=== PATIENT | male | born 1980 | race Caucasian/White ===

== ENCOUNTER 2019-09-23 14:59 | Emergency (ER) | payer BC, SELFPAY ==
[2019-09-23 15:00] VITALS: BP 187/121; PULSE 80; RESP 20; TEMP 36.8; O2SAT 95; BMI 54.6
--- NOTE | 2019-09-23 15:10 | PC.NURSE ---
Notified MD of pt condition, notified rad of stroke protocol
--- NOTE | 2019-09-23 15:16 | PC.NURSE ---
Another stroke protocol called on different pt, myself and charge nurse decided the other pt meet priority of care for head CT, CT notified to take other pt, this pt is stable and awaiting CT
[2019-09-23 15:18] VITALS: BMI 54.6
--- NOTE | 2019-09-23 15:21 | CT_ITS ---
PROCEDURE: CT HEAD/BRAIN WO CON CLINICAL INDICATION: stroke head Left facial droop COMPARISON: No exams were available for comparison TECHNIQUE: Axial images obtained. All CT scans at the facility use one or more dose reduction, viz: automated exposure control, ma/kV adjustment per patient size (including targeted exams where dose is matched to indication, i.e. head), or iterative reconstruction technique. FINDINGS: No midline shift, mass effect, intracranial hemorrhage, hydrocephalus, or extra-axial fluid collection is evident. The calvarium has an unremarkable appearance. No mastoid effusion. No sinus air-fluid level. IMPRESSION: No acute intracranial finding Dictated by: Bryson Medrano MD 09/23/2019 15:50 Electronically signed by Bryson Medrano MD in [place] 09/23/2019 15:50
[2019-09-23 15:26] LABS: Basophils # 0.1 K/mm3 (0-0.2); Basophils % 0.6 % (0.1-2.0); Eosinophils # 0.2 K/mm3 (0.0-0.4); Eosinophils % 1.6 % (0.1-12.0); Hematocrit 45.2 % (42.0-52.0); Hemoglobin 14.7 g/dL (14.1-18.0); Lymphocytes # 2.9 K/mm3 (0.7-4.5); Lymphocytes % 26.1 % (10-50); Mean Corpuscular HGB Conc 32.5 g/dL (31.8-35.4); Mean Corpuscular Hemoglobin 26.8 pg (27.0-31.2); Mean Corpuscular Volume 82.5 fl (80-94); Mean Platelet Volume 9.4 fl (7.4-10.4); Monocytes # 0.5 K/mm3 (0.1-1.0); Monocytes % 4.3 % (1.7-9.3); Neutrophils # 7.4 K/mm3 (1.8-7.8); Neutrophils % 67.4 % (37.0-80.0); Platelet Count 271 K/mm3 (142-424); Red Blood Count 5.48 M/mm3 (4.60-6.20); Red Cell Distribution Width 13.8 % (11.5-17.5); White Blood Count 11.1 K/mm3 (4.8-10.8)
--- NOTE | 2019-09-23 15:30 | ECG_ITS ---
APPROVED REPORT Exam: Resting ECG HR:82 bpm ECG Measurements Heart Rate 82 AXES PA 148 P 16 QRSd 102 QRS -9 QT 372 T 27 QTc 434 <Conclusion> Normal sinus rhythm Normal ECG Electronically signed by : Biju Ruiz, 09/25/2019 05:56:36
[2019-09-23 15:33] LABS: Chloride 96 mmol/L (98-107); Sodium 134 mmol/L (136-145)
[2019-09-23 15:34] LABS: Potassium 4.3 mmoL/L (3.5-5.1)
[2019-09-23 15:36] LABS: Alanine Aminotransferase 43 U/L (12-78); Alkaline Phosphatase 100 U/L (38-126); Anion Gap 10.3 mEq/L (5-15); Aspartate Amino Transferase 46 U/L (17-59); Bilirubin,Total 0.4 mg/dl (0.2-1.3); Blood Urea Nitrogen 12 mg/dl (9-20); Carbon Dioxide 32 mmol/L (22.0-30.0); Creatinine Clearance Estimated 124 mL/min (50-200); Estimated Glomerular Filt Rate 108 ml/min (>60); GFR (African American) 130 ML/MIN (>60); Glucose 304 mg/dl (74-100)
[2019-09-23 15:37] LABS: Albumin Level 4.7 g/dl (3.5-5.0); Albumin/Globulin Ratio 1.2 (1.1-1.8); Globulin 3.9 g/dL (1.3-3.2); Total Protein,Serum 8.6 g/dl (6.3-8.2)
--- NOTE | 2019-09-23 15:37 | PC.NURSE ---
Pt gone to CT
--- NOTE | 2019-09-23 15:41 | PC.NURSE ---
pt returned from CT
[2019-09-23 15:59] LABS: Troponin I < 0.01 ng/ml (0.00-0.034)
--- NOTE | 2019-09-23 16:02 | HMH.EDNEU ---
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), Greer's palsy Disposition: Home, Self-Care Condition on Discharge: Good Instructions: DI for Jaquelin Pacheco Syndrome Prescriptions: predniSONE [Prednisone 20mg Tab] 20 mg PO DAILY 16 Days #40 tab Prescription Printed Valacyclovir HCl [Valtrex] 1,000 mg PO BID 10 Days #20 tab Prescription Printed Referrals: Biju Ruiz MD [Primary Care Provider] - - Critical Care Critical Care Time: No Attestation: On 09/23/19, the high probability of a clinically significant, sudden or life threatening deterioration of the following system(s) required my full and direct attention, intervention and personal management. The time I documented below is in addition to time spent performing reported procedures but includes the following listed in this critical care notation. Medical Decision Making - Medical Records Medical records reviewed: Yes: I reviewed the patient's medical records. - Thompson Inquiry Pt receiving controlled substance: No Vital Signs: 09/23/19 15:00 Temperature 98.2 F Temperature Source Oral Pulse Rate [Right] 80 Respiratory Rate 20 Blood Pressure [Right Arm] 187/121 H Blood Pressure Mean [Right Arm] 143 02 Sat by Pulse Oximetry 95 - Lab Data Lab results reviewed: Yes: I reviewed the patient's lab results. Lab Results 09/23/19 15:14: WBC 11.1 H, RBC 5.48, Hgb 14.7, Hct 45.2, MCV 82.5, MCH 26.8 L, MCHC 32.5, RDW 13.8, Plt Count 271, MPV 9.4, Neut % (Auto) 67.4, Lymph % (Auto) 26.1, King % (Auto) 4.3, Eos % (Auto) 1.6, Baso % (Auto) 0.6, Neut # (Auto) 7.4, Lymph # (Auto) 2.9, King # (Auto) 0.5, Eos # (Auto) 0.2, Baso # (Auto) 0.1 09/23/19 15:14: Sodium 134 L, Potassium 4.3, Chloride 96 L, Carbon Dioxide 32 H, Anion Gap 10.3, BUN 12, Creatinine 0.80, Estimated Creat Clear 124, Estimated GFR 108, Est GFR ( Amer) 130, Glucose 304 H, Calcium 10.0, Total Bilirubin 0.4, AST 46, ALT 43, Alkaline Phosphatase 100, Troponin I < 0.01, Total Protein 8.6 H, Albumin 4.7, Globulin 3.9 H, Albumin/Globulin Ratio 1.2 Result diagrams: 09/23/19 15:14 09/23/19 15:14 Orders (Tests/Meds): ED MEDICATIONS Generic Name Dose Route Start Last Admin Trade Name Freq PRN Reason Stop Dose Admin Acyclovir Sodium 900 mg/ 250 mls @ 250 mls/hr 09/23/19 15:30 Sodium Chloride IV 09/23/19 16:29 ONCE ONE Discontinued Medications Generic Name Dose Route Start Last Admin Trade Name Freq PRN Reason Stop Dose Admin Methylprednisolone Sodium Succinate 125 mg 09/23/19 15:20 Solu-Medrol 125mg/2ml Vial IV 09/23/19 15:21 ONCE ONE ORDERS Category Date Time Status XR chest portable Stat Exams 09/23/19 15:19 Ordered Troponin I Q3H Lab 09/23/19 18:30 Ordered Troponin I Q3H Lab 09/23/19 21:30 Ordered Urinalysis and Microscopic Stat Lab 09/23/19 15:20 Ordered ECG Request by Dr/Nse Stat Y 09/23/19 15:19 Ordered - CT Data CT Scan: Head Time Received: 16:04 Preliminary Findings: Normal/NAD Neuro HPI - General Chief Complaint: Neuro Symptoms/Deficit Stated Complaint: left side numb of face Time Seen by Provider: 09/23/19 16:02 Mode of Arrival: Ambulatory Source of Information: Patient Limitations: No Limitations Description of Symptoms (Recalled from ER Triage Doc. by RN): Presents with left sided facial numbness and tingling. Pt unable to smile or raise his eyebrows, denies pain. - History of Present Illness HPI Narrative: 39-year-old male presents the ED with left-sided facial droop and also difficulty closing his left eye. The symptoms came on this morning. Patient also is complaining of a cold sore also on the left side and also in his left ear. Patient denies any upper extremity involvement. Patient denies any other neurological symptoms. Patient denies any cough or shortness of breath. Patient denies any nausea vomiting or diarrhea. - Related Data Home Medications: Previo
[2019-09-23 17:16] VITALS: BP 174/80; PULSE 70; RESP 16; TEMP 36.8; O2SAT 98
[2019-09-24 17:11] LABS: POC Glucose,Bedside 256 (70-110)
== END 2019-09-23 17:16 | disposition home or self-care (01) ==
PROVIDERS: Emergency Provider Family Medicine; PCP Internal Medicine Adolescent Medicine
DX: B02.21 Postherpetic geniculate ganglionitis (principal); G51.0 Bell's palsy; Z88.0 Allergy status to penicillin
CPT/HCPCS: 70450; 80053; 82962; 84484; 85025; 93005; 96365; 96375; 99283

== ENCOUNTER 2020-05-14 15:53 | Emergency (ER) | payer OTHER, SELFPAY ==
[2020-05-14 16:30] VITALS: BP 134/70; PULSE 87; RESP 16; O2SAT 98; BMI 53.8
--- NOTE | 2020-05-14 16:39 | HMH.EDUTC ---
[facility] [place] Disposition Clinical Impression: URI (upper respiratory infection) Qualifiers: URI type: unspecified URI Qualified Code(s): J06.9 - Acute upper respiratory infection, unspecified Disposition: Home, Self-Care Condition on Discharge: Good Instructions: Sinusitis, Sore Throat, DI for COVID-19 (Suspected or Confirmed ), Coronavirus Disease 2019, Preventing the Spread of Coronavirus Discharge Instructions Additional Instructions: *Monitor Temp, Over the counter Motrin or Tylenol as directed/as needed Tylenol every 4 hours and Motrin every 6 hours (as long as your family doctor has told you that you can take it) for fever or pain. and straight to ER if unable to lower temp less than 101.0 after medication given *Warm salt water gargles may help to soothe the throat *Throat Lozenges *Warm fluids like tea with honey may help to soothe the throat *Sleep elevated *Humidifier/Vaporizer *Flonase 2 sprays in each nostril daily but be aware that it may take 2-3 days before you notice improvement Follow up IMMEDIATELY for new or worsening symptoms or no Noticeable improvement over the next 48-72 hours. 911 for difficulty breathing or swallowing You were tested for today for COVID19 your test result should be back in the next 24-48 hours, you may call to the [facility] to see if your test results are back in the next 48 hours [phone] [facility] hours are 9am-9pm You was given a handout with instructions for Self Quarantine and Self isolation for while you wait on test results and what to do if they are positive If you are positive the Health Dept will be contacting you also Prescriptions: Fluticasone Propionate [Flonase 50mcg nasal spray 16gm] 1 spr NS DAILY #1 bottle Prescription Printed Azithromycin [Z-Glen 250mg Tab] 250 mg PO DIRECTED #6 tab Prescription Printed Referrals: Alexi Barker MD [Primary Care Provider] - As needed Forms: Work/School Release Time of Disposition: 16:46 Medical Decision Making - Thompson Inquiry Pt receiving controlled substance: No Thompson was queried for this patient: No Vital Signs: 05/14/20 16:30 Pulse Rate [Right] 87 Respiratory Rate 16 Blood Pressure [Right Arm] 134/70 Blood Pressure Mean [Right Arm] 91 Blood Pressure Source [Right Arm] Automatic Cuff Blood Pressure Position [Right Arm] Sitting 02 Sat by Pulse Oximetry 98 Oxygen Delivery Method Room Air Orders (Tests/Meds): ORDERS Category Date Time Status Covid-19 Nasal PCR ([facility]) Routine Lab 05/14/20 16:37 Ordered [facility] HPI - General Stated complaint: covid test Time Seen by Provider: 05/14/20 16:39 Mode of Arrival: Ambulatory Source of Information: Patient Limitations: No Limitations Description of Symptoms (Recalled from Triage Doc. by RN): pt c/o fever, headache, cough that started yesterday HEENT Symptoms (Recalled from RN notes): Yes (fever, cough) Resp Symptoms (Recalled from RN notes): No Skin Symptoms (Recalled from RN notes): No MS Symptoms (Recalled from RN notes): No Functional Status (Recalled from RN notes): balbir - History of Present Illness Provider Complaint: Patient state that he has been having sinus pain and pressure, sinus headache, sore throat and body aches that has got worse since yesterday and had low grade fever earlier today States that feels like he has a sinus infection States that his family was worried and wanted him to come in and get tested for COVID - Related Data Previous Rx's Medication Instructions Recorded Valacyclovir HCl [Valtrex] 1,000 mg PO BID 10 Days #20 tab 09/23/19 predniSONE [Prednisone 20mg 20 mg PO DAILY 16 Days #40 tab 09/23/19 Tab] Azithromycin [Z-Glen 250mg Tab] 250 mg PO DIRECTED #6 tab 05/14/20 Fluticasone Propionate [Flonase 1 spr NS DAILY #1 bottle 05/14/20 50mcg nasal spray 16gm] Allergies Allergy/AdvReac Type Severity Reaction Status Date / Time Penicillins Allergy Verified 09/23/19 15:19 - Worker's Comp Is this a Worker's
[2020-05-14 16:52] VITALS: BP 134/70; PULSE 87; RESP 16; TEMP 37.7; O2SAT 98
--- NOTE | 2020-05-14 21:13 | PC.NURSE ---
notified pt of positive covid results
== END 2020-05-14 16:52 | disposition home or self-care (01) ==
PROVIDERS: Emergency Provider Nurse Practitioner; PCP Internal Medicine Adolescent Medicine
DX: U07.1 COVID-19 (principal)
CPT/HCPCS: 99202; G0463; U0003

== ENCOUNTER → 2020-11-05 07:45 | Outpatient (CLI) | payer OTHER, SELFPAY ==
[2020-11-05 08:08] LABS: Hemoglobin A1C 7.2 % (4.0-6.0)
[2020-11-05 08:28] LABS: Chloride 103 mmol/L (98-107); Potassium 4.7 mmoL/L (3.5-5.1); Sodium 141 mmol/L (136-145)
[2020-11-05 08:30] LABS: Alanine Aminotransferase 18 U/L (12-78); Aspartate Amino Transferase 27 U/L (17-59); Blood Urea Nitrogen 14 mg/dl (9-20); Estimated Glomerular Filt Rate 93 ml/min (>60); GFR (African American) 113 ML/MIN (>60)
[2020-11-05 08:31] LABS: Albumin Level 4.5 g/dl (3.5-5.0); Albumin/Globulin Ratio 1.4 (1.1-1.8); Alkaline Phosphatase 84 U/L (38-126); Anion Gap 12.7 mEq/L (5-15); Bilirubin,Total 0.6 mg/dl (0.2-1.3); Calcium 9.5 mg/dl (8.4-10.2); Carbon Dioxide 30 mmol/L (22.0-30.0); Globulin 3.2 g/dL (1.3-3.2); Glucose 129 mg/dl (74-100); Total Protein,Serum 7.7 g/dl (6.3-8.2)
== END ==
PROVIDERS: Visit Provider Internal Medicine Adolescent Medicine
DX: I10 Essential (primary) hypertension (principal); R73.9 Hyperglycemia, unspecified
CPT/HCPCS: 36415; 80053; 83036

== ENCOUNTER → 2022-08-08 07:54 | Outpatient (POV) | payer OTHER, SELFPAY | PROVIDERS: Visit Provider Dermatology | DX: Z00.00 Encounter for general adult medical examination without abnormal findings (principal) ==

== ENCOUNTER 2024-10-08 11:03 | Outpatient (CLI) | payer OTHER, SELFPAY ==
[2024-10-08 11:31] LABS: Basophils % 0.5 % (0.1-2.0); Eosinophils # 0.2 Kmm3 (0.0-0.4); Eosinophils % 2.3 % (0.1-12.0); Hematocrit 43.4 % (42.0-52.0); Hemoglobin 13.9 g/dL (14.1-18.0); Immature Granulocytes # 0.04 10^3uL; Immature Granulocytes % 0.5 %; Lymphocytes # 2.1 K/mm3 (0.7-4.5); Mean Corpuscular Hemoglobin 27.1 pg (27.0-31.2); Mean Corpuscular Volume 84.8 fl (80-94); Mean Platelet Volume 12.1 fl (7.4-10.4); Monocytes # 0.5 K/mm3 (0.1-1.0); Monocytes % 6.3 % (1.7-9.3); Neutrophils # 5.7 K/mm3 (1.8-7.8); Neutrophils % 66.4 % (37.0-80.0); Nucleated Red Blood Cells # 0 10^3/uL; Nucleated Red Blood Cells % 0 %; Platelet Count 205 K/mm3 (142-424); Red Blood Count 5.12 M/mm3 (4.60-6.20); Red Cell Distribution Width 14.2 % (11.5-17.5); Red Cell Distribution Width-SD 43.7 fL; White Blood Count 8.6 K/mm3 (4.8-10.8)
[2024-10-08 11:56] LABS: Hemoglobin A1C 7.9 % (4.0-6.0)
[2024-10-08 12:02] LABS: Alanine Aminotransferase 22 U/L (12-78); Albumin Level 4.4 g/dl (3.5-5.0); Albumin/Globulin Ratio 1.5 (1.1-1.8); Alkaline Phosphatase 83 U/L (38-126); Anion Gap 10.6 mEq/L (5-15); Aspartate Amino Transferase 23 U/L (17-59); Bilirubin,Total 0.4 mg/dl (0.2-1.3); Blood Urea Nitrogen 11 mg/dl (9-20); Calcium 9.3 mg/dl (8.4-10.2); Carbon Dioxide 28 mmol/L (22.0-30.0); Chloride 106 mmol/L (98-107); Chol/HDL Ratio 3.5 (1-3.5); Cholesterol 147 mg/dl (140-200); Estimated Glomerular Filt Rate 105 ml/min (>60); GFR (African American) 127 ML/MIN (>60); Glucose 152 mg/dl (74-100); HDL Cholesterol 42 mg/dl (40-60); Potassium 4.6 mmoL/L (3.5-5.1); Sodium 140 mmol/L (136-145); Total Protein,Serum 7.4 g/dl (6.3-8.2); Triglycerides 189 mg/dl (30-150); VLDL Cholesterol 38 mg/dL (0-40)
[2024-10-08 12:32] LABS: Thyroid Stimulating Hormone 1.35 uIU/mL (0.465-4.68)
== END 2024-10-08 23:59 | disposition home or self-care (01) ==
LOC: LAB 11:06
PROVIDERS: PCP Nurse Practitioner Family; Visit Provider Nurse Practitioner Family
DX: E78.2 Mixed hyperlipidemia (principal); E11.9 Type 2 diabetes mellitus without complications; R07.0 Pain in throat; R49.0 Dysphonia
CPT/HCPCS: 36415; 80053; 80061; 83036; 84443; 85025

== ENCOUNTER 2024-10-13 09:42 | Outpatient (CLI) | payer OTHER, SELFPAY ==
--- NOTE | 2024-10-13 09:44 | US_ITS ---
FINAL REPORT CLINICAL HISTORY: THROAT DISCOMFORT COMPARISON: None FINDINGS: Limited sonographic images were obtained of the soft tissues of the neck. The right parotid and right submandibular salivary glands are unremarkable. No evidence of salivary gland mass. There is an enlarged 22 mm right submandibular lymph node. The left parotid and submandibular salivary glands are unremarkable. There is no evidence of salivary gland mass. There is a normal size 10 mm lymph node adjacent to the left submandibular salivary gland. IMPRESSION: Enlarged right submandibular lymph node favored to be reactive. Otherwise, no acute abnormality. If clinical concern persists, recommend CT with contrast. Reviewed, Interpreted and Dictated by Rupal Anderson MD Transcribed by Maxine Alexandra Authenticated and [facility]
== END 2024-10-13 23:59 | disposition home or self-care (01) ==
LOC: RAD 09:42
PROVIDERS: PCP Nurse Practitioner Family; Visit Provider Nurse Practitioner Family
DX: R59.0 Localized enlarged lymph nodes (principal); R13.10 Dysphagia, unspecified
CPT/HCPCS: 76536

== ENCOUNTER 2025-03-11 13:17 | Day surgery (SDC) | payer OTHER, SELFPAY ==
--- NOTE | 2025-03-05 16:42 | EXP.HP ---
History of Present Illness *Admission Date: 03/11/25 *History of present illness: Mr. Snow is a 44-year-old gentleman who is here for diagnostic EGD. The patient has had throat irritation and some globus sensation. He does have chronic GERD. He was referred by ENT and had laryngoscopy showing inflammation around the arytenoids and larynx. The examination is deemed medically necessary for diagnostic EGD. The patient has been seen, interviewed and examined prior to the procedure by both myself and the anesthesia provider. [facility] Disclaimer: The information contained in this section may have been updated after the patient was seen, as this information can be updated by other users. Medical History (Updated 03/11/25 @ 13:54 by Marga Lino RN) No significant past medical history TIA (transient ischemic attack) Hypercholesterolemia Hypertension Diabetes Vocal cord edema Chronic sinusitis Hoarseness Family History (Updated 03/11/25 @ 13:54 by Marga Lino RN) Grandfather Colon cancer Other Family history of diabetes mellitus type II Social History Smoking Status: Current every day smoker alcohol intake: current substance use type: unknown current occupational status: employed Travel in the last 8 weeks?: None Other Medical History Have you received the Flu Vaccine for this season: Yes Have you received the Pneumonia Vaccine: No Review of Systems Review of Systems Review of systems (narrative): Negative *Cardiovascular Comments: Negative *Gastrointestinal Comments: Negative *Genitourinary Comments: Negative *Musculoskeletal Comments: Negative *Neurologic Comments: Negative Meds Home Medications and Allergies Home Medications ?Medication ?Instructions ?Recorded ?Confirmed ?Type atorvastatin 20 mg tablet 20 mg PO DAILY 11/04/24 03/11/25 History lisinopril 20 mg tablet 20 mg PO DAILY 11/04/24 03/11/25 History metoprolol succinate 50 mg 50 mg PO DAILY 11/04/24 03/11/25 History tablet,extended release 24 hr omeprazole 20 mg capsule,delayed 20 mg PO DAILY 11/04/24 03/11/25 History release semaglutide 2 mg/dose (8 mg/3 mL) 2 mg SQ WEEKLY 02/03/25 03/11/25 History subcutaneous pen injector (Ozempic) famotidine 40 mg tablet (Pepcid) 40 mg PO HS 03/11/25 03/11/25 History valacyclovir 1 gram tablet 1,000 mg PO BID 03/11/25 03/11/25 History (Valtrex) New Prescriptions to Start Prescriptions: Allergies Allergy/AdvReac Type Severity Reaction Status Date / Time Penicillins Allergy Mild Hives Verified 03/11/25 13:55 Exam *Routine HEENT Exam Head: Present normocephalic Eye: Present EOMI and PERRL ENT: Present mucous membranes moist *Routine Neck Exam Neck: Present supple *Routine Respiratory Exam Respiratory: Present CTA bilaterally *Routine Cardiovascular Exam Cardiovascular: Present RRR *Routine Abdominal Exam Abdominal: Present soft and normoactive bowel sounds; Absent tenderness *Routine Rectal Exam Rectal:: deferred *Routine Genitalia Exam Genitalia:: deferred *Routine Extremities Exam Extremities: Absent cyanosis, clubbing or edema *Routine Skin Exam Skin: Present warm; Absent rash *Routine Neurological Exam Neurological: Present alert and oriented X3 Assessment and Plan *Assessment and plan (1) GERD (gastroesophageal reflux disease): Problem Comment: Referred to Gastroenterology and encouraged to continue trying to stop smoking and continue trying to make diet changes. Educated patient about avoiding coffee, acidic foods, fatty foods before bed, caffeinated beverages and tobacco, Status: Acute Qualifiers: Esophagitis bleeding: without hemorrhage Esophagitis presence: with esophagitis Qualified Code(s): K21.00 - Gastro-esophageal reflux disease with esophagitis, without bleeding Category: Medical Code(s): K21.9 - Gastro-esophageal reflux disease without esophagitis (2) Throat pain: Status: Acute Category: Medical Code(s): R07.0 - Pain in throat (3) Hoarseness: Problem Comment: Pt's vocal cord was visualized by using a laryngoscope that showed GERD related irritation and edema, but no cancerous masses. Status: Acute Category: Medical Code(s): R49.0 - Dysphonia Plan A/P: 1. GERD with throat pain and hoarseness is the preprocedural diagnosis. The patient will be anesthetized/sedated using MAC sedation. The patient has been seen and examined. Cardiac and lung assessment prior to the examination is stable. Proceed with planned diagnostic EGD.
[2025-03-06 11:36] VITALS: BMI 50.1
--- NOTE | 2025-03-11 06:43 | P.PCN_ITS ---
[facility] Procedure Note Date: 03/11/25 Time: 14:57 Procedure Note:: Upper Endoscopy Procedure Report: Esophagogastroduodenoscopy with cold biopsies and TTS balloon dilation Endoscopost: Pilo Kovacs II, MD Referring Physician: Biju Ruiz M.D. Date of Procedure: March 11, 2025 Equipment: Olympus GIF-1100 standard upper endoscope Sedation: MAC sedation Indications: Mr. Snow is a 44-year-old gentleman who is here for diagnostic EGD. The patient has had throat irritation and some globus sensation. The patient does have heartburn and reflux which have been well-controlled with omeprazole. The patient is now on omeprazole 20 mg daily and famotidine 40 mg nightly. This throat irritation and globus sensation has not gone away. He does report frequent clearance of the throat. He also reports some belching and bloating. He was referred by ENT and had laryngoscopy showing inflammation around the arytenoids and larynx. The patient does report regular bowel function. This is his first upper endoscopy. The examination is deemed medically necessary for diagnostic EGD. Procedure: Prior to the procedure, a history and physical exam was performed, and patient's medications and allergies were reviewed. The risks, benefits and alternatives of the sedation and procedure were discussed with the patient. All questions were answered and informed consent was obtained. The patient was brought to the procedure room. Patient identification and proposed procedure were verified by the physician and the nurse. The patient was placed in a left lateral decubitus position and the scope was passed under direct vision. Throughout the procedure, the patient's blood pressure, pulse, and oxygen saturations were monitored continuously. The upper GI endoscopy was accomplished without difficulty. The patient tolerated the procedure well. Findings: The scope was passed directly into the upper esophagus and advanced to the third portion of the duodenum. The post bulbar duodenum and duodenal bulb were normal with normal mucosa and conniventes. There was mild mucosal lymphoid stasis. 2 cold biopsies were obtained from the second portion of the duodenum for the disaccharidase assay. The scope was withdrawn through a normal duodenal bulb and pylorus into the stomach. There was mild linear reactive gastropathy of the antrum. The body and fundus of the stomach were normal. Upon retroflexion there was no hiatal hernia. Cold biopsies were taken from the ant rum. The scope was then withdrawn into the esophagus. There was no evidence of reflux esophagitis or Aguilar's. There were no Schatzki's ring, corrugation, furling, webs or inlet patch. There were tertiary contractions and evidence of mild to moderate esophageal dysmotility. The entire esophagus was dilated to 60 Zambian/20 mm with a TTS hydrostatic balloon. There was some very mild resistanc e at the cricopharyngeus. The remainder of the esophageal mucosa was normal. Impression: 1. Nonerosive GERD with mild esophageal dysmotility and very mild cricopharyngeal spasm 2. Linear reactive gastropathy of antrum Plan: The patient describes globus sensation which is a functional esophageal disorder characterized by a sensation of a lump, retained food bolus or mucus, or tightness in the throat even though swallowing can be performed normally, so it is not a true cause of swallowing difficulties, but it can become quite irritating. Occasionally persons can feel or report some very mild chest pressure or rarely chest pain. The lump in the throat sensation that characterizes globus pharyngis is often caused by inflammation of one or more parts of the throat (larynx/hypopharynx-in the lower portion of the throat) due to spasm of the cricopharyngeus (upper esophageal sphincter muscle). This inflammation occurs from increased gas pressure gradients driving gastroesophageal reflux and associated esophageal spasm. I will follow-up the biopsies and discuss treatment options.
[2025-03-11 13:59] VITALS: BP 155/86; PULSE 80; RESP 18; TEMP 36.3; O2SAT 96
[2025-03-11] MEDS: LACTATED RINGERS 1000ML 1,000 ML 50 ML IV (14:11)
--- NOTE | 2025-03-11 14:40 | P.PNANES_ITS ---
[facility] Disclaimer: The information contained in this section may have been updated after the patient was seen, as this information can be updated by other users. Medical History No significant past medical history TIA (transient ischemic attack) Hypercholesterolemia Hypertension Diabetes Vocal cord edema Chronic sinusitis Hoarseness Family History Grandfather Colon cancer Other Family history of diabetes mellitus type II Social History Smoking Status: Current every day smoker alcohol intake: current substance use type: unknown current occupational status: employed Travel in the last 8 weeks?: None [facility] Anesthesia Checklist Patient Identification Patient Identification: Arm Band and Verbal (Name & ) Structural Data Admitted From: Home Planned Operative Procedure/s: EGD Consent for Planned Operative Procedure(s) Verified: Yes Verified Documents: Surgical Consent and History and Physical NPO Status Verified Time NPO: 00:00 Additional verifications Patient : No Anesthesia Reactions: No Airway Assessment Mallampati Score:: Class II Dentition: Good Dentition Neurological Assessment Level of Consciousness: Awake, Alert and Appropriate Hx Seizures: No Numbness or tingling in extremities: No Anesthesia Plan Anesthesia Risk discussed: Yes Anesthesia Plan: Verified ASA Class: II Anesthesia Type: MAC
[2025-03-11 15:01] VITALS: BP 146/82; PULSE 85; RESP 18; TEMP 36.1; O2SAT 96
[2025-03-11 15:11] VITALS: BP 152/77; PULSE 78; RESP 18; TEMP 36.1; O2SAT 94
[2025-03-11 15:21] VITALS: BP 170/94; PULSE 74; RESP 18; TEMP 36.1; O2SAT 95
[2025-03-11 15:31] VITALS: BP 161/92; PULSE 72; RESP 17; TEMP 36.1; O2SAT 96
[2025-03-12 11:28] LABS: POC Glucose,Bedside 118 gm/dL (70-110)
== END 2025-03-11 15:50 | disposition home or self-care (01) ==
PROVIDERS: PCP Nurse Practitioner Family; Visit Provider Internal Medicine Gastroenterology
PROC: 0DJ08ZZ Inspection of Upper Intestinal Tract, Via Natural or Artificial Opening Endoscopic (ICD-10-PCS; CPT 43239; principal; 2025-03-11 15:00)
DX: K21.9 Gastro-esophageal reflux disease without esophagitis (principal); K31.89 Other diseases of stomach and duodenum; K22.4 Dyskinesia of esophagus; F17.200 Nicotine dependence, unspecified, uncomplicated; E11.9 Type 2 diabetes mellitus without complications; E78.00 Pure hypercholesterolemia, unspecified; I10 Essential (primary) hypertension; Z79.85 Long-term (current) use of injectable non-insulin antidiabetic drugs; Z88.0 Allergy status to penicillin; Z86.73 Personal history of transient ischemic attack (TIA), and cerebral infarction without residual deficits
CPT/HCPCS: 43239; 43249; 82962; C1726; J2003; J2704; J7120